=== PATIENT | male | born 1950 | race Caucasian/White ===

== ENCOUNTER → 2017-01-20 | Outpatient (REF) | payer MEDICARE ==
[2017-01-20 15:29] LABS: FREE T4 0.83 NG/DL (0.76-1.46)
[2017-01-20 16:24] LABS: MAGNESIUM URINE RANDOM 6.6 MG/DL; PHOSPHOROUS,RANDOM URINE 15.4 MG/DL
== END ==
LOC: M LAB REF 12:59
PROVIDERS: ATTEND Internal Medicine Nephrology
DX: E83.39 Other disorders of phosphorus metabolism (principal); Z79.899 Other long term (current) drug therapy

== ENCOUNTER → 2018-02-14 | Outpatient (CLI) | payer MEDICARE ==
[2018-02-14 18:53] LABS: CHOLESTEROL LEVEL 181 MG/DL (<200); CHOLESTEROL RISK RATIO 3.351 (<5); HDL CHOLESTEROL 54 MG/DL (>40); LDL CHOLESTEROL 109 MG/DL (<100); NON-HDL-C 127 MG/DL; TRIGLYCERIDES LEVEL 92 MG/DL (<150)
[2018-02-14 19:40] LABS: ALBUMIN 4.1 GM/DL (3.2-5.2); ALBUMIN/GLOBULIN RATIO 1.46 (1.00-1.93); ALKALINE PHOSPHATASE 58 U/L (45-117); ALT/SGPT 29 U/L (12-78); AST/SGOT 18 U/L (7-37); BILIRUBIN,DIRECT 0.2 MG/DL (0.0-0.2); BILIRUBIN,TOTAL 0.9 MG/DL (0.2-1.0); TOTAL PROTEIN 6.9 GM/DL (6.4-8.2)
== END ==
LOC: M SMT 08:16
DX: E78.2 Mixed hyperlipidemia (principal)
CPT/HCPCS: 80076

== ENCOUNTER 2018-02-23 06:55 | Day surgery (SDC) | payer MEDICARE ==
[2018-02-23] MEDS: NS 1,000 ML IV (07:30)
[2018-02-23] MEDS ORDERED: PROPOFOL 200 MG/20 ML VIAL As Ordered ×2 (08:05→09:13)
== END 2018-02-23 09:21 | disposition home or self-care (01) ==
LOC: M OPP 06:55
DX: Z12.11 Encounter for screening for malignant neoplasm of colon (principal); Z86.010 Personal history of colon polyps; D12.0 Benign neoplasm of cecum; D12.7 Benign neoplasm of rectosigmoid junction; D12.3 Benign neoplasm of transverse colon; D12.5 Benign neoplasm of sigmoid colon; D17.5 Benign lipomatous neoplasm of intra-abdominal organs; K21.9 Gastro-esophageal reflux disease without esophagitis; M54.9 Dorsalgia, unspecified; Z79.82 Long term (current) use of aspirin; Z79.899 Other long term (current) drug therapy; Z90.5 Acquired absence of kidney; Z72.0 Tobacco use
CPT/HCPCS: 45385

== ENCOUNTER → 2018-05-01 | Outpatient (REF) | payer MEDICARE ==
[~2018-05-01] MED LIST: ALLO100T; AMLO10TA5; ASPI1TAB PO; ASPI325T25 PO; BISO5TAB5; CALC-196 PO; CYCL10TA PO; ETOD500T PO; EZET10TA; HYDR-3713 PO; KPHOS50TA; LISI-538; NIGHLIQ PO; POLY33503; SOMA350T PO; TYLE500T78 PO
== END ==
LOC: M LAB REF 12:54
PROVIDERS: ATTEND Internal Medicine Nephrology
DX: E83.39 Other disorders of phosphorus metabolism (principal)

== ENCOUNTER → 2019-10-11 | Outpatient (CLI) | payer MEDICARE ==
[~2019-10-11] MED LIST changes: -AMLO10TA5; +AMLO1TAB25; +ASPI-255 PO; -ASPI1TAB PO; -ASPI325T25 PO; +ASPI81TA26 PO; +BISO5TAB14; -BISO5TAB5; +CYCL-707 PO; -CYCL10TA PO; -EZET10TA; +EZET10TA21; -LISI-538; +LISI20TA33
[2019-10-11 10:25] LABS: APPEARANCE, URINE HAZY (CLEAR); BACTERIA, URINE AUTO NEGATIVE (NEGATIVE); BILIRUBIN, URINE AUTO NEGATIVE (NEGATIVE); BLOOD, URINE BLOOD NEGATIVE (NEGATIVE); COLOR, URINE YELLOW (YELLOW); GLUCOSE, URINE (UA) AUTO NEGATIVE (NEGATIVE); KETONE, URINE AUTO NEGATIVE (NEGATIVE); LEUKOCYTE ESTERASE, URINE AUTO NEGATIVE (NEGATIVE); NITRITE, URINE AUTO NEGATIVE (NEGATIVE); PROTEIN, URINE AUTO NEGATIVE (NEGATIVE); RBC, URINE AUTO 0 /HPF (0-3); SPECIFIC GRAVITY URINE AUTO 1.014 (1.002-1.035); SQUAMOUS EPITHELIAL CELL UR AU 0 /HPF (0-6); UROBILINOGEN, URINE AUTO 0.2 mg/dL (0.0-2.0); WBC, URINE AUTO 0 /HPF (0-3)
[2019-10-11 10:27] LABS: BASO % 0.3 % (0.0-1.0); EOS # 0.2 10^3/uL (0.0-0.5); EOS % 3.5 % (0.0-3.0); HEMOGLOBIN 14.6 g/dl (13.5-17.5); LYMPH # 1.3 10^3/uL (1.5-5.0); LYMPH % 21.5 % (24.0-44.0); MEAN CORPUSCULAR HEMOGLOBIN 30.9 pg (27.0-33.0); MEAN CORPUSCULAR HGB CONC 33.2 g/dl (32.0-36.5); MEAN CORPUSCULAR VOLUME 93.2 fl (80.0-96.0); MONO # 0.6 10^3/uL (0.0-0.8); MONO % 10.7 % (0.0-5.0); NEUTROPHILS # 3.8 10^3/uL (1.5-8.5); NEUTROPHILS % 63.5 % (36.0-66.0); PLATELET COUNT, AUTOMATED 144 10^3/uL (150-450); RED BLOOD COUNT 4.72 10^6/uL (4.30-6.10)
[2019-10-11 10:49] LABS: HEMOGLOBIN A1c 5.5 %
[2019-10-11 10:59] LABS: ALBUMIN 3.8 GM/DL (3.2-5.2); ALT/SGPT 25 U/L (12-78); BILIRUBIN,TOTAL 0.7 MG/DL (0.2-1.0); BLOOD UREA NITROGEN 15 MG/DL (7-18); CALCIUM LEVEL 8.9 MG/DL (8.8-10.2); CARBON DIOXIDE LEVEL 25 MEQ/L (21-32); CHLORIDE LEVEL 113 MEQ/L (98-107); CHOLESTEROL LEVEL 149 MG/DL (<200); CHOLESTEROL RISK RATIO 2.365 (<5); CREATININE FOR GFR 1.21 MG/DL (0.70-1.30); FREE T4 0.94 NG/DL (0.76-1.46); GLOMERULAR FILTRATION RATE > 60.0 (>49); GLUCOSE, FASTING 98 MG/DL (70-100); HDL CHOLESTEROL 63 MG/DL (>40); LDL CHOLESTEROL 77 MG/DL (<100); NON-HDL-C 86 MG/DL; POTASSIUM SERUM 4.7 MEQ/L (3.5-5.1); SODIUM LEVEL 144 MEQ/L (136-145); TOTAL PROTEIN 6.3 GM/DL (6.4-8.2); TRIGLYCERIDES LEVEL 45 MG/DL (<150)
== END ==
LOC: M WUC 08:12
PROVIDERS: ATTEND Family Medicine
DX: I10 Essential (primary) hypertension (principal); E78.5 Hyperlipidemia, unspecified

== ENCOUNTER → 2020-04-15 | Outpatient (REF) ==
[~2020-04-15] MED LIST changes: +LISI-538; -LISI20TA33
[2020-04-15 10:23] LABS: COLLAGEN EPINEPHRINE 138 SECONDS (74-162)
== END ==
LOC: M LAB REF 09:41
DX: D69.6 Thrombocytopenia, unspecified (principal)

== ENCOUNTER → 2021-01-08 | Outpatient (REF) | payer MEDICARE ==
[~2021-01-08] MED LIST changes: -ETOD500T PO; +ETOD500T4 PO; -LISI-538; +LISI20TA33
== END ==
LOC: M LAB REF 13:11
PROVIDERS: ATTEND Nurse Practitioner Family
DX: E83.42 Hypomagnesemia (principal)

== ENCOUNTER 2021-08-07 08:10 | Day surgery (SDC) | payer MEDICARE ==
[~2021-08-07] VITALS: Ht 180.3 cm; Wt 89.8 kg
[~2021-08-07 08:10] MED LIST changes: +ATOR1TAB21; -ETOD500T4 PO; +HYDR10TAB; +NS 1,000 ML IV ONE; +[UNRECOGNIZED DRUG - CODE] PO
[2021-08-07] MEDS ORDERED: propofoL 200 MG/20 ML VIAL As Ordered ONE ×2 (08:52→09:28)
[2021-08-07] MEDS ORDERED: LIDOCAINE 2% 100MG/5ML SDV (FOR ANES.) As Ordered ONE (08:52)
[2021-08-07 09:51] VITALS: BP 92/64
== END 2021-08-07 09:54 | disposition home or self-care (01) ==
LOC: M OPP 08:10
PROVIDERS: ATTEND Internal Medicine Gastroenterology
DX: Z12.11 Encounter for screening for malignant neoplasm of colon (principal); Z86.010 Personal history of colon polyps; Z80.0 Family history of malignant neoplasm of digestive organs; K63.5 Polyp of colon; K57.30 Diverticulosis of large intestine without perforation or abscess without bleeding; K64.8 Other hemorrhoids; D17.5 Benign lipomatous neoplasm of intra-abdominal organs; Z79.82 Long term (current) use of aspirin; Z79.811 Long term (current) use of aromatase inhibitors; Z79.899 Other long term (current) drug therapy; F17.290 Nicotine dependence, other tobacco product, uncomplicated

== ENCOUNTER → 2024-01-27 | Outpatient (REF) | payer MEDICARE ==
[~2024-01-27] MED LIST changes: +ETOD-235 PO; +HYDR-161; -HYDR10TAB; -NS 1,000 ML IV ONE; -[UNRECOGNIZED DRUG - CODE] PO
[2024-01-27 18:13] LABS: BILIRUBIN,DIRECT 0.3 MG/DL (<0.4); BILIRUBIN,TOTAL 0.9 MG/DL (0.3-1.2); TOTAL PROTEIN 6.4 G/DL (5.7-8.2)
== END ==
LOC: M LAB REF 17:00
PROVIDERS: ATTEND Nurse Practitioner Family
DX: R82.2 Biliuria (principal)

== ENCOUNTER 2025-03-11 09:25 | Day surgery (SDC) | payer MEDICARE ==
[~2025-03-11] VITALS: Ht 180.3 cm; Wt 86.6 kg
[~2025-03-11 09:25] MED LIST changes: -ALLO100T; +ALLO100T PO; -AMLO1TAB25; +AMLO1TAB25 PO; -ATOR1TAB21; +ATOR1TAB21 PO; -BISO5TAB14; +BISO5TAB14 PO; -EZET10TA21; +EZET10TA57; +LIDOCAINE 2% 100 MG/5 ML SDV (FOR ANES.) As Ordered ONE; -LISI20TA33; +LISI20TA33 PO
[2025-03-11 11:05] VITALS: TEMP 97.7
[2025-03-11 11:26] VITALS: BP 134/63; O2SAT 100
== END 2025-03-11 11:31 | disposition home or self-care (01) ==
LOC: M OPP 09:25
PROVIDERS: ATTEND Internal Medicine Gastroenterology
DX: D12.2 Benign neoplasm of ascending colon (principal); D17.5 Benign lipomatous neoplasm of intra-abdominal organs; K62.89 Other specified diseases of anus and rectum; K57.30 Diverticulosis of large intestine without perforation or abscess without bleeding; K64.8 Other hemorrhoids; Z86.0101 Personal history of adenomatous and serrated colon polyps; Z79.82 Long term (current) use of aspirin; Z79.899 Other long term (current) drug therapy; F17.290 Nicotine dependence, other tobacco product, uncomplicated